=== PATIENT | male | born 1975 | race African-American/Black ===

== ENCOUNTER 2018-11-22 10:15 | Emergency (ER) | payer OTHER ==
[~2018-11-22] VITALS: Ht 170.2 cm; Wt 70.0 kg
[2018-11-22] MEDS ORDERED: ACETAMINOPHEN 325 MG TAB PO ONE (11:00)
--- NOTE | 2018-11-22 11:17 | REP ---
CT Head without contrast HISTORY: Trauma COMPARISON: None There is no intraparenchymal hemorrhage, acute infarct, mass or midline shift. The ventricular system is normal in appearance. There is no extra cerebral collection. There is no fracture. Mucosal thickening is present in the right ethmoid and sphenoid sinuses. IMPRESSION: There is no intracranial lesion. Electronically Signed by Cuco Chery MD 11/22/2018 11:09 A
--- NOTE | 2018-11-22 11:20 | REP ---
CT cervical spine without contrast HISTORY: Trauma COMPARISON: None There is no acute fracture or subluxation. There is no disc bulge or herniation. The spinal canal and neural foramina are patent. The intervertebral discs and vertebral bodies are normal in height. IMPRESSION: There is no acute fracture or subluxation. Electronically Signed by Cuco Chery MD 11/22/2018 11:11 A
[2018-11-22 11:56] VITALS: BP 121/72
--- NOTE | 2018-11-22 12:14 | REP ---
Bilateral knee series: Nine views. History: Trauma. Findings: Five views of each knee are presented. These demonstrate normal bones, joints, and soft tissues. No fracture or subluxation is seen. There is minimal nonarticular spur formation at the superior pole of the right patella on lateral film. Impression: No fracture noted. Electronically Signed by Oswaldo Gonzales MD 11/22/2018 11:49 A
== END 2018-11-22 11:56 | disposition home or self-care (01) ==
LOC: M ED 10:15
DX: S16.1XXA Strain of muscle, fascia and tendon at neck level, initial encounter (principal); S80.01XA Contusion of right knee, initial encounter; S80.02XA Contusion of left knee, initial encounter; S00.31XA Abrasion of nose, initial encounter; W19.XXXA Unspecified fall, initial encounter; Y92.89 Other specified places as the place of occurrence of the external cause; Y93.02 Activity, running; Y99.1 Military activity